=== PATIENT | male | born 1955 | race Caucasian/White ===

== ENCOUNTER 2018-01-12 09:09 | Emergency (ER) | payer OTHER ==
[2018-01-12] MEDS ORDERED: ONDANSETRON 4 MG/2 ML VIAL ONE (10:39)
[2018-01-12 10:45] LABS: Absolute Lymphocytes (CBC) 1.7 K/uL (0.7-4.9); Absolute Monocytes 0.6 K/uL (0.1-1.3); Absolute Neutrophil 5.6 K/uL (1.8-8.0); Basophils % 0.8 % (0-1.3); Eosinophils % 3.9 % (0-4.4); Hematocrit 41.3 % (39.6-49.0); Lymphocytes % 21.1 % (15.3-44.8); MCH 29.3 pg (27.0-35.0); MCV 86.9 fL (80-100); MPV 8.6 fL (7.6-11.3); Monocytes % 6.7 % (3.3-12.3); RBC Red Blood Cell Count 4.76 M/uL (4.33-5.43)
[2018-01-12 10:48] LABS: Protime INR 1.03
[2018-01-12 11:06] LABS: ALT/SGPT 41 U/L (12-78); AST/SGOT 16 U/L (15-37); Albumin 3.8 g/dL (3.4-5.0); Alkaline Phosphatase 83 U/L (45-117); BUN Blood Urea Nitrogen 11 mg/dL (7-18); Bicarbonate 28 mmol/L (21-32); Bilirubin Direct 0.1 mg/dL (0-0.2); Bilirubin Total 0.3 mg/dL (0.2-1.0); Glucose Level 227 mg/dL (74-106); Magnesium 1.8 mg/dL (1.8-2.4); NT PRO-BNP 10 pg/mL (<125); Potassium 4.2 mmol/L (3.5-5.1); Protein, Total 7.9 g/dL (6.4-8.2); Sodium Level 139 mmol/L (136-145); Troponin (Emerg Dept Use Only) < 0.02 ng/mL (0.0-0.045)
--- NOTE | 2018-01-12 11:24 | RAD REPORT ---
EXAM DESCRIPTION: CT - CTHCSPWOC - 01/12/2018 10:45 am CLINICAL HISTORY: Trauma, head and neck injury. NUMBNESS/TINGLING COMPARISON: No comparisons TECHNIQUE: Axial 5 mm thick images of the head were obtained. Axial 2 mm thick images of the cervical spine were obtained with sagittal and coronal reconstruction images generated and reviewed. All CT scans are performed using dose optimization technique as appropriate and may include automated exposure control or mA/KV adjustment according to patient size. FINDINGS: CT HEAD WITHOUT CONTRAST: No acute hemorrhage, hydrocephalus or extra-axial collection is identified.Mild generalized brain atr ophy is present with mild periventricular and deep white matter chronic microvascular ischemic change s.No areas of brain edema or midline shift. Mildly mucoperiosteal thickening affecting the ethmoid air cells.The calvarium is intact. Left verteb ral artery is calcified. CT CERVICAL SPINE WITHOUT CONTRAST: No fracture or subluxation.Moderate lower cervical degenerative change.No prevertebral soft tissues s welling is identified. Prominent posterior spurring is noted at C6-7. IMPRESSION: No acute intracranial or cervical spine findings.
--- NOTE | 2018-01-12 11:30 | RAD REPORT ---
EXAM DESCRIPTION: Mis Single View01/12/2018 11:05 am CLINICAL HISTORY: Chest pain COMPARISON: 2012 FINDINGS: The lungs appear clear of acute infiltrate. The heart is normal size IMPRESSION: No acute abnormalities displayed
[2018-01-12 11:36] LABS: Urine Blood NEGATIVE (NEG); Urine Glucose NEGATIVE (NEG); Urine Protein NEGATIVE (NEG)
--- NOTE | 2018-01-12 12:14 | EDPHYS ---
Physician Documentation [facility] Name: Zenon Gaxiola Age: 62 yrs Sex: Male : 1955 Arrival Date: 01/12/2018 Time: 09:13 Bed 4 Private MD: ED Physician Shmuel Gamboa HPI: 01/12 10:29 This 62 yrs old Male presents to ER via Ambulatory with complaints of Nausea, cp Neck Pain, <24hrs Old, Shoulder Pain, Numbness Of Arm. 10:29 The patient or guardian complains of pain, that is acute. The complaints affect the cp posterior aspect of right shoulder. 10:29 Onset: The symptoms/episode began/occurred this morning. Treatment prior to arrival cp includes: no previous treatment. Associated signs and symptoms: Pertinent positives: tingling, of the right hand and right arm, Pertinent negatives: decreased range of motion, swelling, weakness. Severity of symptoms: in the emergency department the symptoms are unchanged. Historical: - Allergies: 09:52 meloxicam; ss - PMHx: 09:52 Diabetes - NIDDM; Hypertension; ss - PSHx: 09:52 back sx; ankle sx; ss - Immunization history:: Adult Immunizations up to date. - Social history:: Smoking status: Patient/guardian denies using tobacco. - Ebola Screening: : Patient denies exposure to infectious person Patient denies travel to an Ebola-affected area in the 21 days before illness onset. ROS: 10:30 Eyes: Negative for injury, pain, redness, and discharge. cp 10:30 Constitutional: Negative for body aches, chills, fever, poor PO intake. 10:30 ENT: Negative for drainage from ear(s), ear pain, sore throat, difficulty swallowing, difficulty handling secretions. 10:30 Cardiovascular: Negative for chest pain, edema, palpitations. 10:30 Respiratory: Negative for cough, shortness of breath, wheezing. 10:30 Abdomen/GI: Positive for nausea, Negative for vomiting, diarrhea, constipation, black/tarry stool, rectal bleeding. 10:30 Back: Positive for pain at rest, pain with movement, of the right trapezius and right scapular area. 10:30 MS/extremity: Positive for paresthesias, of the right hand and right arm, Negative for injury or acute deformity, decreased range of motion. 10:30 Skin: Negative for cellulitis, rash. 10:30 Neuro: Negative for altered mental status, dizziness, headache, syncope, near syncope, weakness. 10:30 All other systems are negative. Exam: 10:35 ECG was reviewed by the Attending Physician. cp 10:37 Constitutional: The patient appears in no acute distress, alert, awake, cp non-diaphoretic, non-toxic, well developed, well nourished. 10:37 Head/Face: Normocephalic, atraumatic. Eyes: Pupils equal round and reactive to light, cp extra-ocular motions intact. Lids and lashes normal. Conjunctiva and sclera are non-icteric and not injected. Cornea within normal limits. Periorbital areas with no swelling, redness, or edema. ENT: Nares patent. No nasal discharge, no septal abnormalities noted. Tympanic membranes are normal and external auditory canals are clear. Oropharynx with no redness, swelling, or masses, exudates, or evidence of obstruction, uvula midline. Mucous membranes moist. 10:37 Neck: C-spine: vertebral tenderness, is not appreciated, crepitus, is not appreciated, ROM/movement: is normal, is supple, without pain, no range of motions limitations, no meningismus, no nuchal rigidity, Lymph nodes: no appreciated lymphadenopathy. 10:37 Chest/axilla: Inspection: normal, Palpation: is normal, no crepitus, no tenderness. 10:37 Cardiovascular: Rate: normal, Rhythm: regular, Heart sounds: murmur, not appreciated, rub, not appreciated, gallop, not appreciated, Edema: is not appreciated, JVD: is not appreciated. 10:37 Respiratory: the patient does not display signs of respiratory distress, Respirations: normal, no use of accessory muscles, no retractions, no splinting, no tachypnea, labored breathing, is not present, Breath sounds: are clear throughout, no decreased breath sounds, no stridor, no wheezing. 10:37 Abdomen/GI: Inspection: abdomen appears normal, Bowel sounds: active, all quadrants, Palpation: abdomen is soft and non-tender, in all quadrants, rebound tenderness, is not appreciated, voluntary guarding, is not appreciated, involuntary guarding, is not appreciated. 10:37 Back: pain, that is mild, of the right trapezius and right scapular area, ROM is normal. 10:37 Musculoskeletal/extremity: ROM: full active range of motion, in all extremities, Pulses: noted to be 2+ in the right radial artery and left radial artery, the right arm Tingling of extremity. 10:37 Skin: cellulitis, is not appreciated, no rash present. 10:37 Neuro: Orientation: to person, place \T\ time. Mentation: is normal, Cerebellar function: is grossly normal. Vital Signs: 09:52 BP 156 / 88; Pulse 86; Resp 16; Temp 97.5(TE); Pulse Ox 98% on R/A; Weight 129.73 kg; ss Height 6 ft. 0 in. (182.88 cm); Pain 2/10; 10:45 BP 156 / 82; Pulse 84; Resp 16; Pulse Ox 100% on R/A; hb 11:48 BP 132 / 82; Pulse 77; Resp 15; Pulse Ox 100% ; hb 09:52 Body Mass Index 38.79 (129.73 kg, 182.88 cm) ss MDM: 10:22 Patient medically screened. cp 11:00 Differential diagnosis: tendonitis, acute MN, cervical strain, bulging disc, cp radiculopathy. 12:10 Data reviewed: vital signs, nurses notes, lab test result(s), EKG, radiologic studies, cp plain films. 12:10 Test interpretation: by ED physician or midlevel provider: ECG, plain radiologic cp studies. Counseling: I had a detailed discussion with the patient and/or guardian regarding: the historical points, exam findings, and any diagnostic results supporting the discharge/admit diagnosis, lab results, radiology results, the need for outpatient follow up, a family practitioner, to return to the emergency department if symptoms worsen or persist or if there are any questions or concerns that arise at home. Response to treatment: the patient's symptoms have mildly improved after treatment, and as a result, I will discharge patient. 01/12 10: Order name: Basic Metabolic Panel; Complete Time: 11:14 cp 01/12 11:14 Interpretation: Normal except: GLUC 227; GFR 76. cp 01/12 10:27 Order name: CBC with Diff; Complete Time: 11:14 cp 01/12 11:15 Interpretation: Reviewed. cp 01/12 10: Order name: LFT's; Complete Time: 11:14 cp 01/12 11:14 Interpretation: Normal except: GLOB 4.1; A/G 0.9. cp 01/12 10:27 Order name: Magnesium; Complete Time: 11:14 cp 01/12 10:27 Order name: NT PRO-BNP; Complete Time: 11:14 cp 01/12 10:27 Order name: PT-INR; Complete Time: 11:14 cp 01/12 10:27 Order name: Troponin (emerg Dept Use Only); Complete Time: 11:14 cp 01/12 11:15 Interpretation: Within normal limits: TROPED < 0.02. cp 01/12 10:27 Order name: XRAY Chest (1 view); Complete Time: 11:33 cp 01/12 11:33 Interpretation: Report review. cp 01/12 10:27 Order name: EKG; Complete Time: 10:28 cp 01/12 10:27 Order name: Cardiac monitoring; Complete Time: 10:49 cp 01/12 10:29 Order name: CT Head C Spine; Complete Time: 11:33 cp 01/12 11:34 Interpretation: Reviewed report. cp 01/12 11:23 Order name: Urine Dipstick--Ancillary (enter results); Complete Time: 12:09 bd 01/12 12:09 Interpretation: Reviewed. cp 01/12 10:27 Order name: EKG - Nurse/Tech; Complete Time: 10:53 cp 01/12 10:27 Order name: IV Saline Lock; Complete Time: 11:04 cp 01/12 10:27 Order name: Labs collected and sent; Complete Time: 11:04 cp 01/12 10:27 Order name: O2 Per Protocol; Complete Time: 10:49 cp 01/12 10:27 Order name: O2 Sat Monitoring; Complete Time: 10:49 cp EC:35 Rate is 78 beats/min. Rhythm is regular. MD interval is normal. QRS interval is normal. cp QT interval is normal. Interpreted by me. Reviewed by me. Administered Medications: 10:40 Drug: Zofran 4 mg Route: IVP; Site: right antecubital; hb 11:20 Follow up: Response: No adverse reaction hb 12:14 Drug: Flexeril 10 mg Route: PO; hb 12:14 Follow up: Response: Medication administered at discharge. hb Disposition: 18:16 Co-signature as Attending Physician, Shmuel Gamboa MD. Disposition: 01/12/18 12:14 Discharged to Home. Impression: Pain in right shoulder, Paresthesia of skin - Right Arm and Hand. - Condition is Stable. - Discharge Instructions: Musculoskeletal Pain, Paresthesia, Shoulder Pain. - Prescriptions for Ultracet 37.5- 325 mg Oral Tablet - take 1 tablet by ORAL route every 6 hours - for up to 5 days; do not exceed 8 tablets per day. no driving while taking medication; 20 tablet. Cyclobenzaprine 10 mg Oral Tablet - take 1 tablet by ORAL route every 8 hours As needed no driving while taking medication; 20 tablet. - Work release form, Medication Reconciliation Form, Thank You Letter, Antibiotic Education, Prescription Opioid Use form. - Follow up: Private Physician; When: 2 - 3 days; Reason: Recheck today's complaints. - Problem is new. - Symptoms have improved. Signatures: Dispatcher [employer] EDMS Talon Britton RN RN sg Smirch, Shelby, RN RN ss Loy Quick PA PA cp Baxter, Heather, RN RN Shmuel Gamboa MD MD Corrections: (The following items were deleted from the chart) 12:27 12:14 01/12/2018 12:14 Discharged to Home. Impression: Pain in right shoulder; sg Paresthesia of skin - Right Arm and Hand. Condition is Stable. Forms are Medication Reconciliation Form, Thank You Letter, Antibiotic Education, Prescription Opioid Use. Follow up: Private Physician; When: 2 - 3 days; Reason: Recheck today's complaints. Problem is new. Symptoms have improved. cp
--- NOTE | 2018-01-12 12:14 | ER ---
Nurse's Notes [facility] Name: Zenon Gaxiola Age: 62 yrs Sex: Male : 1955 Arrival Date: 01/12/2018 Time: 09:13 Bed 4 Private MD: Diagnosis: Pain in right shoulder;Paresthesia of skin-Right Arm and Hand Presentation: 01/12 09:48 Presenting complaint: Patient states: Pt reports that at approx 0715 this AM he ss suddenly became nauseated, then states he felt a pain to his R shoulder and now his R arm feels "numb and tingly." Pt reports that often he has "shakies" in his R arm and has suspicion that he has a pinched nerve somewhere. Transition of care: patient was not received from another setting of care. Onset of symptoms was January 12, 2018. Risk Assessment: Do you want to hurt yourself or someone else? Patient reports no desire to harm self or others. Initial Sepsis Screen: Does the patient meet any 2 criteria? No. Patient's initial sepsis screen is negative. Does the patient have a suspected source of infection? No. Patient's initial sepsis screen is negative. Care prior to arrival: None. 09:48 Method Of Arrival: Ambulatory ss 09:48 Acuity: JERRELL 3 ss Historical: - Allergies: 09:52 meloxicam; ss - PMHx: 09:52 Diabetes - NIDDM; Hypertension; ss - PSHx: 09:52 back sx; ankle sx; ss - Immunization history:: Adult Immunizations up to date. - Social history:: Smoking status: Patient/guardian denies using tobacco. - Ebola Screening: : Patient denies exposure to infectious person Patient denies travel to an Ebola-affected area in the 21 days before illness onset. Screenin:40 Abuse screen: Denies threats or abuse. Denies injuries from another. Nutritional hb screening: No deficits noted. Tuberculosis screening: No symptoms or risk factors identified. Fall Risk None identified. Assessment: 10:00 General: Appears in no apparent distress. Behavior is calm, cooperative. Pain: Pain hb currently is 2 out of 10 on a pain scale. Neuro: Level of Consciousness is awake, alert, obeys commands, Oriented to person, place, time, situation, Speech is normal, Intact. Cardiovascular: Capillary refill < 3 seconds Patient's skin is warm and dry. Respiratory: Airway is patent Respiratory effort is even, unlabored, Respiratory pattern is regular, symmetrical, Breath sounds are clear bilaterally. GI: Abdomen is round Bowel sounds present X 4 quads. Abd is soft and non tender X 4 quads. Reports nausea. : No signs and/or symptoms were reported regarding the genitourinary system. EENT: No signs and/or symptoms were reported regarding the EENT system. Derm: No signs and/or symptoms reported regarding the dermatologic system. Skin is intact, is healthy with good turgor, Skin is pink, warm \\T\\ dry. Musculoskeletal: 11:00 Reassessment: Patient appears in no apparent distress at this time. No changes from previously documented assessment. Patient and/or family updated on plan of care and expected duration. Pain level reassessed. Patient is alert, oriented x 3, equal unlabored respirations, skin warm/dry/pink. 12:00 Reassessment: Patient appears in no apparent distress at this time. Patient and/or hb family updated on plan of care and expected duration. Pain level reassessed. Patient is alert, oriented x 3, equal unlabored respirations, skin warm/dry/pink. Vital Signs: 09:52 BP 156 / 88; Pulse 86; Resp 16; Temp 97.5(TE); Pulse Ox 98% on R/A; Weight 129.73 kg; ss Height 6 ft. 0 in. (182.88 cm); Pain 2/10; 10:45 BP 156 / 82; Pulse 84; Resp 16; Pulse Ox 100% on R/A; hb 11:48 BP 132 / 82; Pulse 77; Resp 15; Pulse Ox 100% ; hb 09:52 Body Mass Index 38.79 (129.73 kg, 182.88 cm) ED Course: 09:13 Patient arrived in ED. as 09:50 Triage completed. ss 09:52 Arm band placed on right wrist. ss 10:12 Shmuel Gamboa MD is Attending Physician. gs 10:13 EKG done, by mechanical tech. reviewed by Shmuel Gamboa MD. at1 10:14 Audrey Flynn, RN is Primary Nurse. hb 10:22 Loy Quick PA is PHCP. cp 10:22 Shmuel Gamboa MD is Attending Physician. cp 10:40 Patient has correct armband on for positive identification. Placed in gown. Bed in low hb position. Call light in reach. Side rails up X 1. 10:40 Inserted saline lock: 20 gauge in right antecubital area, using aseptic technique. hb Blood collected. 10:45 CT Head C Spine In Process Unspecified. EDMS 11:06 XRAY Chest (1 view) In Process Unspecified. EDMS 11:07 X-ray completed. Patient tolerated procedure well. [facility] 12:15 No provider procedures requiring assistance completed. IV discontinued, intact, hb bleeding controlled, No redness/swelling at site. Pressure dressing applied. Administered Medications: 10:40 Drug: Zofran 4 mg Route: IVP; Site: right antecubital; hb 11:20 Follow up: Response: No adverse reaction hb 12:14 Drug: Flexeril 10 mg Route: PO; hb 12:14 Follow up: Response: Medication administered at discharge. hb Outcome: 12:14 Discharge ordered by MD. cp 12:15 Discharged to home ambulatory, with family. hb 12:15 Condition: stable 12:15 Discharge instructions given to patient, Instructed on discharge instructions, follow up and referral plans. medication usage, Demonstrated understanding of instructions, follow-up care, medications, Prescriptions given X 2. 12:27 Patient left the ED. sg Signatures: Dispatcher [employer] EDNJ Talon Britton RN RN sg Harvey, Martha 1 Rica Collazo Shelby, RN RN Melissa Guzmán, supervisor metal furniture fabrication EKG Tat1 Loy Quick PA PA cp Baxter, Heather, RN RN Shmuel Gamboa MD MD
[2018-01-12] MEDS ORDERED: CYCLOBENZAPRINE 10 MG TAB ONE (12:19)
--- NOTE | 2018-01-12 12:24 | EKG ---
Test Date: 2018-01-12 Test Time: 10:00:00 Electric Organ Assembler: GLO MEASUREMENT RESULTS: Intervals: Rate: 78 WI: 162 QRSD: 84 QT: 386 QTc: 440 [place]: P: 39 WI: 162 QRS: 25 T: 52 INTERPRETIVE STATEMENTS: Normal sinus rhythm Normal ECG Compared to ECG 12/24/2012 02:04:02 Sinus tachycardia no longer present T-wave abnormality no longer present Electronically Signed On 01-12-18 12:23:51 CDT by Arthur Canales
[2018-01-12 12:31] VITALS: TEMP 97.5
[2018-01-12 12:32] VITALS: O2SAT 100
[2018-01-12 12:33] VITALS: BP 132/82
== END 2018-01-12 12:27 | disposition home or self-care (01) ==
LOC: ER 09:09
DX: R20.2 Paresthesia of skin (principal); I10 Essential (primary) hypertension; Z88.8 Allergy status to other drugs, medicaments and biological substances
CPT/HCPCS: 36415; 70450; 71045; 72125; 80048; 80076; 81003; 83735; 83880; 84484; 85025; 85610; 93005; J2405